=== PATIENT | female | born 1975 | race Hispanic/Latino ===

== ENCOUNTER 2017-12-27 10:38 | Outpatient (CLI) | payer OTHER ==
[2017-12-27] MEDS ORDERED: Iopamidol 370 76% 100 ML VIAL ONE (11:08)
--- NOTE | 2017-12-27 14:51 | CT ---
ABDOMEN AND PELVIC CT SCAN WITH IV CONTRAST: History: 42-year-old female with history of diverticulitis, lower abdominal pain for two weeks. Treated for bl adder infection. History of . FINDINGS: The lung bases are clear. The liver, gallbladder, pancreas, spleen, adrenal glands are unremarkable. Small left renal circumscribed hypodensity, statistically a small cyst but too small to characterize. No renal calculi or acute obstruction. Unremarkable uterus and adnexal regions. Normal appearing appendix. No abscess, adenopathy, or abnormal fluid collection or other acute process. IMPRESSION: No significant acute process in the abdomen or pelvis. Probable small left renal cyst. POS: [id number]
== END 2017-12-27 10:39 | disposition home or self-care (01) ==
LOC: CT 10:38
PROVIDERS: ATTEND Family Medicine
DX: K57.92 Diverticulitis of intestine, part unspecified, without perforation or abscess without bleeding (principal); R10.30 Lower abdominal pain, unspecified
CPT/HCPCS: 74177